=== PATIENT | female | born 1965 | race Caucasian/White ===

== ENCOUNTER 2025-07-21 08:31 | Outpatient (AMB) | payer OTHER, SELFPAY ==
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
[2025-07-21 08:53] VITALS: BP 118/88; PULSE 70; RESP 12; TEMP 36.9; BMI 28.1
--- OUTSIDE RECORDS SUMMARY | 2025-07-21 08:53 | XMS_ITS | Encounter Summary ---
Author Organization [facility] Address [address] [place] [address] Care Team Providers Care Museum Assistant Name Role Phone Julissa Arroyo MD Primary Care Provider [phone] Encounter Details Date Type Department Care Team (Late st Contact Info) Description 07/30/2017 Orders Only [facility] [address] [place] [address] Julissa Arroyo MD [address] [place] [address] Social History Tobacco Use Types Packs/Day Years Used Date Smoking Tobacco: Former Cigarettes Smokeless Tobacco: Former Quit: 07/26/2014 Comments: less than 1/2 ppd Alcohol Use Standard Drinks/Week Comments No 0 (1 standard drink = 0.6 oz pur e alcohol) Comments No Sex and Gender Information Value Date Recorded Sex Assigned at Not on file Legal Sex Female 10:54 AM EDT Gender Identity Not on file Sexual Orientation Not on file 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 Please increase dosage by 1000 units and can repeat level in 6 months or with next lab determination for annual exam. Thank you. * Michelle Ogden - 08/01/2017 9:48 AM EDT See telephone note * Julissa Arroyo MD - 07/31/2017 9:53 PM EDT Please call pt, notify her that her cholesterol is okay, but LDL is still too high for someone on astatin, recommend increase to 40mg pravastatin, and recheck AST and lipids in 2 months, her platelets are still a little low but improved. Recommend we can recheck these again at the 2 month wm also If agrees send new script and schedule 2 month AST LIPIDS, CBC documented in this encounter Plan of Treatment Not on file documented as of this encounter Goals Goal Patient Goal Type Associated Problems Recent Progress Patient-Stated? Author Quit smoking / using tobacco Lifestyle No Lidya Coleman RN documented as of this encounter Procedures * Due to [place] [employer] law, this organization might not be sharing negative HIV tests. Procedure Name Priority Date/Time Associated Diagnosis Comments CBC INCLUDES DIFFERENTIAL AND PLATELET COUNT Routine 07/30/2017 11:35 AM EDT Well adult exam ASPARTATE AMINOTRANSFERASE (AST), SERUM Routine 07/30/2017 11:35 AM EDT Well adult exam VITAMIN D, 25-HYDROXY, TOTAL, IMMUNOASSAY Routine 07/30/2017 11:35 AM EDT Vitamin D deficiency Well adult exam LIPID PANEL WITH REFLEX TO DIRECT LDL Routine 07/30/2017 11:35 AM EDT Pure hypercholesterolem ia Well adult exam documented in this encounter Results * Due to [place] law, this organization might not be sharing negative HIV tests. * (ABNORMAL) VITAMIN D, 25-HYDROXY, TOTAL, IMMUNOASSAY (07/30/2017 11:35 AM EDT) Vitamin D, 25-OH, Total 24(L) 30 - 100 ng/mL [facility] Comment: Vitamin D Status 25-OH Vitamin D: Deficiency: <20 ng/mL Insufficiency: 20 - 29 ng/mL Optimal: > or = 30 ng/mL For 25-OH Vitamin D testing on patients on D2-supplementation and patients for whom quantitation of D2 and D3 fractions is required, the QuestAssureD(TM) 25-OH VIT D, (D2,D3), LC/MS/MS is recommended: order code 27443 (patients >2yrs). For more information on this test, go to: http://education.[employer]/faq/FGH017 (This link is being provided for informational/educational purposes only.) 07/30/2017 11:3 5 AM EDT 07/30/2017 9:43 PM EDT Narrative Resulting Agency Comment [id number] Julissa Arroyo MD LABORATORY Final Resu lt [facility] [address] [place] [address] * (ABNORMAL) CBC INCLUDES DIFFERENTIAL AND PLATELET COUNT (07/30/2017 11:35 AM EDT) WBC 5.8 3.8 - 10.8 Thousand/u L [facility] RBC 4.62 3.80 - 5.10 Million/uL [facility] Hemoglobin 14.9 11.7 - 15.5 g/dL [facility] Hematocrit 44.5 35.0 - 45.0 % [facility] MCV 96.3 80.0 - 100.0 fL [facility] MCH 32.2 27.0 - 33.0 pg [facility] MCHC 33.4 32.0 - 36.0 g/dL [facility] RDW 13.3 11.0 - 15.0 % [facility] PLT 128(L) 140 - 400 Thousand/u L [facility] MPV 10.7 7.5 - 12.5 fL [facility] Neutrophils # 3921 1500 - 7800 cells/uL [facility] Lymphocytes # 1363 850 - 3900 cells/uL [facility] Monocytes # 348 200 - 950 cells/uL [facility] Eosinophils # 157 15 - 500 cells/uL [facility] Basophils # 12 0 - 200 cells/uL [facility] Neutrophils % 67.6 % [facility] Lymphocytes % 23.5 % [facility] Monocytes % 6.0 % [facility] Eosinophils % 2.7 % [facility] Basophils % 0.2 % [facility] 07/30/2017 11:3 5 AM EDT 07/30/2017 9:43 PM EDT Narrative Resulting Agency Comment [id number] us Julissa Arroyo MD LAB SAME DAY RESULT Final Result Performing Organization Address City/[facility]/ZIP Co de Phone Number [facility] [address] [place] [address] * ASPARTATE AMINOTRANSFERASE (AST), SERUM (07/30/2017 11:35 AM EDT) AST (SGOT) 17 10 - 35 U/L [facility] 07/30/2017 11:3 5 AM EDT 07/30/2017 9:43 PM EDT Narrative Resulting Agency Comment [id number] Julissa Arroyo MD LAB SAME DAY RESULT Final Result Performing Organization Address [facility] de Phone Number [facility] [address] [place] [address] * (ABNORMAL) LIPID PANEL WITH REFLEX TO DIRECT LDL (07/30/2017 11:35 AM EDT) Cholesterol 196 <200 mg/dL [facility] HDL Cholesterol 46(L) >50 mg/dL [facility] Triglyceride 211(H) <150 mg/dL [facility] LDL Cholesterol 117(H) mg/dL (calc) [facility] Comment: Reference range: <100 Desirable range <100 mg/dL for patients with CHD or diabetes and <70 mg/dL for diabetic patients with known heart disease. The Leobardo calculation is a validated novel method that provides better accuracy than the Friedewald equation in the estimation of LDL-C, particularly when TG levels are 150-400 mg/dL and LDL-C levels are lower than 70 mg/dL. Reference: Husam GONZALEZ et al. Comparison of a Novel Method vs the Friedewald Equation for Estimating Low-Density Lipoprotein Cholesterol Levels From the Standard Lipid Profile. NICOLAS. 2013;310(19): 5869-6881. For additional information, please refer to http://education.[employer]/faq/AIG136 (This link is being provided for informational/ educational purposes only.) CHOL/HDL Ratio 4.3 <5.0 (calc) [facility] Cholesterol Non-HDL 150(H) <130 mg/dL (calc) [facility] Comment: For patients with diabetes plus 1 major ASCVD risk factor, treating to a non-HDL-C goal of <100 mg/dL (LDL-C of <70 mg/dL) is considered a therapeutic option. 07/30/2017 11:3 5 AM EDT 07/30/2017 9:43 PM EDT Narrative Resulting Agency Comment [id number] Julissa Arroyo MD LABORATORY Final Resu lt [facility] [address] [place] [address] documented in this encounter Visit Diagnoses Diagnosis Pure hypercholesterolemia Well adult exam Routine general medical examination at a health care facility Vitamin D deficiency documented in this encounter Care Teams Museum Assistant Relationship Specialty Start Date End Date Julissa Arroyo MD [address] [place] [id number] PCP - General Family Medicine 06/15/16 documented as of this encounter
--- OUTSIDE RECORDS SUMMARY | 2025-07-21 08:53 | XMS_ITS | Encounter Summary ---
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 Her platelets are a little low, these are cells in the CBC that are involved with clotting,would just recheck in a month with the liver tests. Also the vitamin D level is low, please recommend supplement per protocol. * Cristy Oliva - 02/01/2017 7:45 AM EST Called [facility], added lab * Julissa Arroyo MD - 01/31/2017 8:53 PM EST Please add hepatic function testing to this lab documented in this encounter Plan of Treatment Not on file documented as of this encounter Goals Goal Patient Goal Type Associated Problems Recent Progress Patient-Stated? Author Quit smoking / using tobacco Lifestyle No Lidya Coleman RN documented as of this encounter Procedures * Due to [place] state law, this organization might not be sharing negative HIV tests. Procedure Name Priority Date/Time Associated Diagnosis Comments HEPATIC FUNCTION PANEL Routine 7 3:43 PM EST URINALYSIS DIP W/ REFLEX TO MICROSCOPIC+CULTURE Routine 01/29/2017 3:43 PM EST Healthcare maintenance CBC INCLUDES DIFFERENTIAL AND PLATELET COUNT Routine 01/29/2017 3:43 PM EST Healthcare maintenance ALANINE AMINOTRANSFERASE (ALT), SERUM Routine 01/29/2017 3:43 PM EST Healthcare maintenance Pure hypercholesterolemia ASPARTATE AMINOTRANSFERASE (AST), SERUM Routine 01/29/2017 3:43 PM EST Healthcare maintenance Pure hypercholesterolemia THYROID STIMULATING HORMONE (TSH) WITH FREE T4 REFLEX, SERUM Routine 01/29/2017 3:43 PM EST Healthcare maintenance PROLACTIN Routine 01/29/2017 3:43 PM EST Mastalgia VITAMIN D, 25-HYDROXY, TOTAL, IMMUNOASSAY Routine 01/29/2017 3:43 PM EST Healthcare maintenance BASIC METABOLIC PANEL WITH (GFR) Routine 01/29/2017 3:43 PM EST Healthcare maintenance documented in this encounter Results * Due to [place] state law, this organization might not be sharing negative HIV tests. * (ABNORMAL) HEPATIC FUNCTION PANEL (01/29/2017 3:43 PM EST) Protein Total (Serum) 6.1 6.1 - 8.1 g/dL [facility] Albumin 4.5 3.6 - 5.1 g/dL [facility] Globulin 1.6(L) 1.9 - 3.7 g/dL (calc) [facility] Albumin/Globulin 2.8(H) 1.0 - 2.5 (calc) [facility] Bilirubin Total 0.6 0.2 - 1.2 mg/dL [facility] Bilirubin Direct 0.1 < OR = 0.2 mg/dL [facility] Bilirubin Indirect 0.5 0.2 - 1.2 mg/dL (calc) [facility] Alkaline phosphatase 77 33 - 130 U/L [facility] AST (SGOT) 33 10 - 35 U/L [facility] ALT (SGPT) 48(H) 6 - 29 U/L [facility] COMMENT SEE NOTE [facility] Comment: A hepatic function panel was requested on a serum sample that has been in storage beyond the published stability of total and direct bilirubin. Clinical interpretations should consider this stability data. 01/29/2017 3:4 3 PM EST 01/29/2017 10:44 PM EST us Julissa Arroyo MD LABORATORY Final Resu lt [facility] [address] [place] [address] * PROLACTIN (01/29/2017 3:43 PM EST) Prolactin 18.2 ng/mL [facility] Comment: Reference Range Females Non- 3.0-30.0 10.0-209.0 Postmenopausal 2.0-20.0 01/29/2017 3:43 PM EST 01/29/2017 10:44 PM EST Narrative Resulting Agency Comment [id number] Julissa Arroyo MD LAB SAME DAY RESULT Final Result Performing Organization Address [facility] Co de Phone Number [facility] [address] [place] [address] * (ABNORMAL) ALANINE AMINOTRANSFERASE (ALT), SERUM (01/29/2017 3:43 PM EST) ALT (SGPT) 48(H) 6 - 29 U/L [facility] 01/29/2017 3:43 PM EST 01/29/2017 10:44 PM EST Narrative Resulting Agency Comment [id number] Julissa Arroyo MD LAB SAME DAY RESULT Final Result Performing Organization Address [facility] de Phone Number [facility] [address] [place] [address] * ASPARTATE AMINOTRANSFERASE (AST), SERUM (01/29/2017 3:43 PM EST) AST (SGOT) 33 10 - 35 U/L [facility] 01/29/2017 3:43 PM EST 01/29/2017 10:44 PM EST Narrative Resulting Agency Comment [id number] Julissa Arroyo MD LAB SAME DAY RESULT Final Result Performing Organization Address [facility] de Phone Number [facility] [address] [place] [address] * (ABNORMAL) VITAMIN D, 25-HYDROXY, TOTAL, IMMUNOASSAY (01/29/2017 3:43 PM EST) Vitamin D, 25-OH, Total 19(L) 30 - 100 ng/mL [facility] Comment: Vitamin D Status 25-OH Vitamin D: Deficiency: <20 ng/mL Insufficiency: 20 - 29 ng/mL Optimal: > or = 30 ng/mL For 25-OH Vitamin D testing on patients on D2-supplementation and patients for whom quantitation of D2 and D3 fractions is required, the [facility](TM) 25-OH VIT D, (D2,D3), LC/MS/MS is recommended: order code 07544 (patients >2yrs). For more information on this test, go to: http://education.[employer]/faq/OKE779 (This link is being provided for informational/educational purposes only.) 01/29/2017 3:43 PM EST 01/29/2017 10:44 PM EST Narrative Resulting Agency Comment [id number] Julissa Arroyo MD LABORATORY Final Resu lt Performing Organization Address [facility] Co de Phone Number [facility] [address] [place] [address] * URINALYSIS DIP W/ REFLEX TO MICROSCOPIC+CULTURE (01/29/2017 3:43 PM EST) Color (Urine) YELLOW YELLOW [facility] Appearance (Urine) CLEAR CLEAR [facility] Specific gravity (Urine) 1.016 1.001 - 1.035 [facility] pH (Urine) 5.5 5.0 - 8.0 [facility] Glucose (Urine) NEGATIVE NEGATIVE [facility] Bilirubin (Urine) NEGATIVE NEGATIVE [facility] Ketones (Urine) NEGATIVE NEGATIVE [facility] Hemoglobin (Urine) NEGATIVE NEGATIVE [facility] Protein (Urine) NEGATIVE NEGATIVE [facility] Nitrite (Urine) NEGATIVE NEGATIVE [facility] Leukocyte esterase (Urine) NEGATIVE NEGATIVE [facility] 01/29/2017 3:43 PM EST 01/29/2017 10:44 PM EST Narrative Resulting Agency Comment [id number] Julissa Arroyo MD LABORATORY Final Resu lt Performing Organization Address [facility] Co de Phone Number [facility] [address] [place] [address] * THYROID STIMULATING HORMONE (TSH) WITH FREE T4 REFLEX, SERUM (01/29/2017 3:43 PM EST) TSH 1.99 mIU/L [facility] Comment: Reference Range > or = 20 Years 0.40-4.50 Ranges First trimester 0.26-2.66 Second trimester 0.55-2.73 Third trimester 0.43-2.91 01/29/2017 3:43 PM EST 01/29/2017 10:44 PM EST Narrative Resulting Agency Comment [id number] Julissa Arroyo MD LABORATORY Final Resu lt [facility] [address] [place] [address] * (ABNORMAL) CBC INCLUDES DIFFERENTIAL AND PLATELET COUNT (01/29/2017 3:43 PM EST) WBC 8.6 3.8 - 10.8 Thousand/u L [facility] RBC 4.54 3.80 - 5.10 Million/uL [facility] Hemoglobin 14.5 11.7 - 15.5 g/dL [facility] Hematocrit 43.0 35.0 - 45.0 % [facility] MCV 94.8 80.0 - 100.0 fL [facility] MCH 31.9 27.0 - 33.0 pg [facility] MCHC 33.6 32.0 - 36.0 g/dL [facility] RDW 13.3 11.0 - 15.0 % [facility] PLT 130(L) 140 - 400 Thousand/u L [facility] MPV 10.8 7.5 - 12.5 fL [facility] Neutrophils # 6398 1500 - 7800 cells/uL [facility] Lymphocytes # 1299 850 - 3900 cells/uL [facility] Monocytes # 679 200 - 950 cells/uL [facility] Eosinophils # 155 15 - 500 cells/uL [facility] Basophils # 69 0 - 200 cells/uL [facility] Neutrophils % 74.4 % [facility] Lymphocytes % 15.1 % [facility] Monocytes % 7.9 % [facility] Eosinophils % 1.8 % [facility] Basophils % 0.8 % [facility] 01/29/2017 3:43 PM EST 01/29/2017 10:44 PM EST Narrative Resulting Agency Comment [id number] Julissa Arroyo MD LAB SAME DAY RESULT Final Result [facility] [address] [place] [address] * BASIC METABOLIC PANEL WITH (GFR) (01/29/2017 3:43 PM EST) Glucose 99 65 - 99 mg/dL [facility] Comment:Fasting reference in terval Urea Nitrogen Blood (BUN) 15 7 - 25 mg/dL [facility] Creatinine 0.70 0.50 - 1.05 mg/dL [facility] Comment: For patients >49 years of age, the reference limit for Creatinine is approximately 13% higher for people identified as -Citizen Of [place]. GFR 99 > OR = 60 mL/min/1 .73m2 [facility] GFR () 115 > OR = 60 mL/min/1 .73m2 [facility] BUN/Creatinine Ratio NOT APPLICABLE 6 - 22 (calc) [facility] Sodium 140 135 - 146 mmol/L [facility] Potassium 3.8 3.5 - 5.3 mmol/L [facility] Chloride 103 98 - 110 mmol/L [facility] Carbon dioxide 27 20 - 31 mmol/L [facility] Calcium 9.2 8.6 - 10.4 mg/dL [facility] 01/29/2017 3:43 PM EST 01/29/2017 10:44 PM EST Narrative [facility] - 01/30/2017 4:12 AM EST Please note that this estimated GFR does not include an adjustment for the patient's height or weight, and can therefore, be viewed as reliable only for patients with heights between 60 and 72 . More precise quantification using a 24-hour urine sample or height-based algorithm is recommended for patients outside of this range of height and for those individuals with more precise needs for GFR calculation. Resulting Agency Comment [id number] us Julissa Arroyo MD LABORATORY Final Resu lt [facility] [address] [place] [address] documented in this encounter Visit Diagnoses Diagnosis Healthcare maintenance Routine general medical examination at a health care facility Pure hypercholesterolemia Mastalgia Mastodynia documented in this encounter Care Teams Paint Pourer Relationship Specialty Start Date End Date Julissa Arroyo MD [address] [place] [id number] PCP - General Family Medicine 06/15/16 documented as of this encounter
--- OUTSIDE RECORDS SUMMARY | 2025-07-21 08:53 | XMS_ITS | Encounter Summary ---
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 Repeat CBC 3 mos. Hep B Ab positive so immune. Hep C negative.Mild TG elevation. Low carb/sugar diet and repeat lipids 6 mos, thanks documented in this encounter Plan of Treatment Not on file documented as of this encounter Goals Goal Patient Goal Type Associated Problems Recent Progress Patient-Stated? Author Quit smoking / using tobacco Lifestyle Lidya Dumont RN documented as of this encounter Procedures * Due to [place] [employer] law, this organization might not be sharing negative HIV tests. Procedure Name Priority Date/Time Associated Diagnosis Comments HEPATITIS B SURFACE ANTIGEN Routine 03/15/2017 12:24 PM EDT Abnormal liver function test HEPATITIS C AB WITH REFLEX TO RNA PCR, SERUM Routine 03/15/2017 12:24 PM EDT Abnormal liver function test HEPATITIS B SURFACE ANTIBODY, QUANTITATIVE (FOR IMMUNITY) Routine 03/15/2017 12:24 PM EDT Abnormal liver function test CBC INCLUDES DIFFERENTIAL AND PLATELET COUNT Routine 03/15/2017 12:24 PM EDT Abnormal liver function test Abnormal CBC ALANINE AMINOTRANSFERASE (ALT), SERUM Routine 03/15/2017 12:24 PM EDT Abnormal liver function test ASPARTATE AMINOTRANSFERASE (AST), SERUM Routine 03/15/2017 12:24 PM EDT Abnormal liver function test IRON PROFILE (IRON/TIBC), SERUM Routine 03/15/2017 12:24 PM EDT Abnormal liver function test LIPID PANEL WITH REFLEX TO DIRECT LDL Routine 03/15/2017 12:24 PM EDT Healthcare maintenance Pure hypercholesterolemia documented in this encounter Results * Due to [place] state law, this organization might not be sharing negative HIV tests. * ASPARTATE AMINOTRANSFERASE (AST), SERUM (03/15/2017 12:24 PM EDT) AST (SGOT) 21 10 - 35 U/L [facility] 03/15/2017 12:2 4 PM EDT 03/15/2017 9:56 PM EDT Narrative Resulting Agency Comment [id number] Julissa Arroyo MD LAB SAME DAY RESULT Final Result [facility] [address] [place] [address] * ALANINE AMINOTRANSFERASE (ALT), SERUM (03/15/2017 12:24 PM EDT) ALT (SGPT) 28 6 - 29 U/L [facility] 03/15/2017 12:2 4 PM EDT 03/15/2017 9:56 PM EDT Narrative Resulting Agency Comment [id number] us Julissa Arroyo MD LAB SAME DAY RESULT Final Result Performing Organization Address [facility] Co de Phone Number [facility] [address] [place] [address] * (ABNORMAL) HEPATITIS B SURFACE ANTIBODY, QUANTITATIVE (03/15/2017 12:24 PM EDT) Hepatitis B virus surface Ab 9(L) > OR = 10 mIU/mL [facility] Comment: Patient does not have immunity to hepatitis B virus. For additional information, please refer to http://education.[employer]/faq/QLB082 (This link is being provided for informational/ educational purposes only). 03/15/2017 12:2 4 PM EDT 03/15/2017 9:56 PM EDT Narrative Resulting Agency Comment [id number] us Julissa Arroyo MD LABORATORY Final Resu lt Performing Organization Address [facility] de Phone Number [facility] [address] [place] [address] * IRON PROFILE (IRON/TIBC), SERUM (03/15/2017 12:24 PM EDT) Iron 142 45 - 160 mcg/dL [facility] Iron binding capacity 316 250 - 450 mcg/dL (calc) [facility] Iron saturation 45 11 - 50 % (calc) [facility] 03/15/2017 12:2 4 PM EDT 03/15/2017 9:56 PM EDT Narrative Resulting Agency Comment [id number] us Julissa Arroyo MD LABORATORY Final Resu lt Performing Organization Address [facility] Co de Phone Number [facility] [address] [place] [address] * HEPATITIS B SURFACE ANTIGEN (03/15/2017 12:24 PM EDT) Pathologist [facility] Hepatitis B virus surface Ag NON-REACTI VE NON-REACT ISHAN [facility] 03/15/2017 12:2 4 PM EDT 03/15/2017 9:56 PM EDT Narrative Resulting Agency Comment [id number] Julissa Arroyo MD LABORATORY Final Resu lt Performing Organization Address [facility] Co de Phone Number [facility] [address] [place] [address] * HEPATITIS C AB WITH REFLEX TO RNA PCR, SERUM (03/15/2017 12:24 PM EDT) Pathologist [facility] Hepatitis C virus Ab NON-REACTI VE NON-REACT ISHAN [facility] Hepatitis C virus Ab Signal/Cutoff 0.01 <1.00 [facility] 03/15/2017 12:2 4 PM EDT 03/15/2017 9:56 PM EDT Narrative Resulting Agency Comment [id number] Julissa Arroyo MD LABORATORY Final Resu lt Performing Organization Address [facility] Co de Phone Number [facility] [address] [place] [address] * (ABNORMAL) CBC INCLUDES DIFFERENTIAL AND PLATELET COUNT (03/15/2017 12:24 PM EDT) Pathologist [facility] WBC 5.4 3.8 - 10.8 Thousand/u L [facility] RBC 4.81 3.80 - 5.10 Million/uL [facility] Hemoglobin 15.2 11.7 - 15.5 g/dL [facility] Hematocrit 46.2(H) 35.0 - 45.0 % [facility] MCV 96.1 80.0 - 100.0 fL [facility] MCH 31.6 27.0 - 33.0 pg [facility] MCHC 32.9 32.0 - 36.0 g/dL [facility] RDW 13.0 11.0 - 15.0 % [facility] PLT 119(L) 140 - 400 Thousand/u L [facility] MPV 11.6 7.5 - 12.5 fL [facility] Neutrophils # 3424 1500 - 7800 cells/uL [facility] Lymphocytes # 1382 850 - 3900 cells/uL [facility] Monocytes # 394 200 - 950 cells/uL [facility] Eosinophils # 173 15 - 500 cells/uL [facility] Basophils # 27 0 - 200 cells/uL [facility] Neutrophils % 63.4 % [facility] Lymphocytes % 25.6 % [facility] Monocytes % 7.3 % [facility] Eosinophils % 3.2 % [facility] Basophils % 0.5 % [facility] 03/15/2017 12:2 4 PM EDT 03/15/2017 9:56 PM EDT Narrative Resulting Agency Comment [id number] Julissa Arroyo MD LAB SAME DAY RESULT Final Result Performing Organization Address [facility] de Phone Number [facility] [address] [place] [address] * (ABNORMAL) LIPID PANEL WITH REFLEX TO DIRECT LDL (03/15/2017 12:24 PM EDT) Cholesterol 213(H) 125 - 200 mg/dL [facility] HDL Cholesterol 41(L) > OR = 46 mg/dL [facility] Triglyceride 255(H) <150 mg/dL [facility] LDL Cholesterol 121 <130 mg/dL (calc) [facility] Comment: Desirable range <100 mg/dL for patients with CHD or diabetes and <70 mg/dL for diabetic patients with known heart disease. CHOL/HDL Ratio 5.2(H) < OR = 5.0 (calc) [facility] Cholesterol Non-HDL 172(H) mg/dL (calc) [facility] Comment: Target for non-HDL cholesterol is 30 mg/dL higher than LDL cholesterol target. 03/15/2017 12:2 4 PM EDT 03/15/2017 9:56 PM EDT Narrative Resulting Agency Comment [id number] Julissa Arroyo MD LABORATORY Final Resu lt Performing Organization Address [facility] Co de Phone Number [facility] [address] [place] [address] documented in this encounter Visit Diagnoses Diagnosis Healthcare maintenance Routine general medical examination at a health care facility Pure hypercholesterolemia Abnormal liver function test Other abnormal blood chemistry Abnormal CBC Other abnormal blood chemistry documented in this encounter Care Teams Radiologist Physician Relationship Specialty Start Date End Date Julissa Arroyo MD [address] [place] [address] PCP - General Family Medicine 06/15/16 documented as of this encounter
--- OUTSIDE RECORDS SUMMARY | 2025-07-21 08:53 | XMS_ITS | Encounter Summary ---
Author Organization [facility] Address [address] [place] [address] Care Team Providers Care Bulldozer/Loader/Compactor/Scraper Name Role Phone Julissa Arroyo MD Primary Care Provider +1- [phone] Reason for Referral * OUTPT PROCEDURES AND DIAGNOSTICS (Routine) - ZZ Not Required Specialty Diagnoses / Procedures Referred By Contac t Referred To Contact Mammography Diagnoses SCREENING Procedures REQUEST FOR MAMMOGRAPHY BILATERAL(DX: SCREENING FOR BREAST CANCER Z12.31)(1 YR FROM LAST) NON-FC Julissa Arroyo MD [address] [place] [address] Phone: tel: fax: [facility] [address] [place] [address] Phone: tel: Referral ID Status Reason Start Date Expiration Date Visits Requested Visits Authorized [id number] ZZ Not Required Continuity of Care 03/24/2017 1 1 Encounter Details Date Type Department Care Team (Late st Contact Info) Description 03/24/2017 Orders Only [place] [facility] [address] [place] [address] Julissa Arroyo MD [address] [place] [address] Social History Tobacco Use Types Packs/Day Years [...] Industry Job Start Date Job End Date [facility] Not on file Not on file Not o n file documented as of this encounter Plan of Treatment Scheduled Orders Name Type Priority Associated Diagnoses Orde r Schedule REQUEST FOR MAMMOGRAPHY BILATERAL(DX: SCREENING FOR BREAST CANCER Z12.31)(1 YR FROM LAST) NON-FC Imaging Routine Ordered: 0 03/24/2017 documented as of this encounter Goals Goal Patient Goal Type Associated Problems Recent Progress Patient-Stated? Author Quit smoking / using tobacco Lifestyle No Lidya Coleman RN documented as of this encounter Visit Diagnoses Diagnosis Routine adult health maintenance Routine general medical examination at a health care facility documented in this encounter Care Teams Bulldozer/Loader/Compactor/Scraper Relationship Specialty Start Date End Date Julissa Arroyo MD [address] [place] [address] PCP - General Family Medicine 06/15/16 documented as of this encounter
--- OUTSIDE RECORDS SUMMARY | 2025-07-21 08:53 | XMS_ITS | Clinical Summary ---
Author Organization [facility] Address [address] [place] [address] Care Team Providers Care Site Promotion Agent Name Role Phone Julissa Arroyo MD Primary Care Provider +1- [phone] Allergies No known active allergies Medications Lactobacillus-In ulin ([facility]) Cap 1 QD Active Cholecalciferol 1000 UNITS TabIndications:A bnormal liver function test,Abnormal CBC 1 TABLET DAILY 30 Tab 11 02/04/2017 Active Cholecalciferol 12656 UNITS CapIndications:A bnormal liver function test,Abnormal CBC 1 cap weekly x 8 weeks then start 1000iu daily therafter. take w/food 8 Cap 02/04/2017 Active Azelastine HCl 0.1 % Solution 2 sprays bilat nose BID 1 Bottle 12 03/29/2017 Active Active Problems Problem Noted Date Diagnosed Date Decreased platelet count 07/16/2019 Overview (07/16/2019): Results for MOHINI TORRES ( ) as of 07/16/2019 14:27 Ref. Range 01/29/2017 15:43 03/15/2017 12:24 07/30/2017 11:35 PLATELETS Latest Ref Range: 140 - 400 Thousand/uL 130 (L) 119 (L) 128 (L) Mixed anxiety and depressive disorder 07/30/2017 Overview (07/30/2017): 07/30/2017 she does also have 3 cups of coffee a day of asked her to decrease her caffeine see if this helps with the anxiety, otherwise she has been very stable on sertraline 150 mg, she takes 100 mg in the morning and a half a tablet at night, she also takes 1 alprazolam in the morning. She would like to try a different SSRI if decreasing the caffeine does not help could conceivably try Lexapro initially 10 mg increasing to 20 if decreasing caffeine does not help with the anxiety Vitamin D deficiency 02/04/2017 Multiple atypical nevi 01/01/2017 Overview (07/30/2017): 07/30/2017 we will set her up with dermatology for skin review, had seen Paloma Houser in the past we will set her up again Osteopenia 01/01/2017 Overview (01/01/2017): Vitamin D and calcium regular weightbearing exercise obtain bone density may repeat in 3-5 years Right flank pain 01/01/2017 Overview (01/29/2017): 01/01/2017 she does note that she has had this for about 3 weeks is not aware of any injury, it is slightly better so she will continue to monitor if she does not note an improvement then she will call for reevaluation 01/29/2017 she comes in today for reevaluation she has persistent nonchanging pain, suspect it may be musculoskeletal and will consider physical therapy pending results of Workup that will include abdominal ultrasound to rule out gallbladder/renal abnormality or any other abnormality in that area, will also check dorsal spine film if these are negative consider physical therapy Nasal polyps 07/31/2015 Overview (02/03/2017): HAS HAD THEM REMOVED IN PAST. AND HAS ABOUT 3 SINUS INFECTIONS PER YEAR I am ordering a CT scan of the coronal sinuses, consider ENT follow-up as she does have chronic nasal congestion throughout the year it is very bothersome to her Hyperlipidemia 07/31/2015 Overview (07/30/2017): 07/30/2017 she is set up for routine lab work she will have this done within the next week or so, she continues on statin Immunizations Immunization Administration Dates Next Due Influenza,injectable,quad,Prsrv Fr 07/30/2017 Influenza,seasonal,trivalent,preservative (FLUZO NE MDV) 09/18/2016 Tdap(Adacel) 12/15/2010 Family History Medical History Relation Name Comments Alcohol/Drug Brother sober and helps others Cancer - Brain Father Heart Disorder Father CAD Gastrointestinal Disorder Mother IB S/diarrhea Heart Disorder Mother [place] 80 Stroke Mother Cancer - Lung Sister 1 Psych/Mental Health Sister 2 bipolar/ /depression Gastrointestinal Disorder Sister 3 IB S/diarrhea Relation Name Status Comments Brother Father (Age 70) Mother (Age 79) Sister 1 Sister 2 Sister 3 Social History Tobacco Use Types Packs/Day Years Used Date Smoking Tobacco: Former Cigarettes Smokeless Tobacco: Former Quit: 07/26/2014 Comments: less than 1/2 ppd Alcohol Use Standard Drinks/Week Comments No 0 (1 standard drink = 0.6 oz pur e alcohol) Intimate Partner Violence Answer Date R ecorded Fear of Current or Ex-Partner Not on file Emotionally Abused Not on file 07/28/2023 Physically Abused Not on file 07/28/2023 Sexually Abused Not on file 07/28/2023 Feel Safe at Home Not on file 07/28/2023 Comments No Sex and Gender Information Value Date Recorded Sex Assigned at Not on file Legal Sex Female 10:54 AM EDT Gender Identity Not on file Sexual Orientation Not on file 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 file Not o n file Last Filed Vital Signs Vital Sign Reading Time Taken Comments Blood Pressure 117/71 07/30/2017 10:45 AM EDT Pulse 63 07/30/2017 10:45 AM EDT Temperature 36.3 C (97.4 F) 07/30/2017 10:45 AM EDT Respiratory Rate 16 07/31/2015 11:02 AM EDT Oxygen Saturation 97% 07/31/2015 11:02 AM EDT Inhaled Oxygen Concentration - - Weight 72.6 kg (160 lb) 07/30/2017 10:45 AM EDT Height 155.6 cm (5' 1.25 ) 07/30/2017 10:45 AM E DT Body Mass Index 29.99 07/30/2017 10:45 AM EDT Plan of Treatment Health Maintenance Due Date Last Done Comments Pap Smear 1979 Pneumococcal 50+ years (1 of 1 - PCV) 2013 Zoster (Shingrix) (1 of 2) 2013 Mammogram/Breast Imaging 02/20/2018 02/20/2017 DTaP/Tdap/Td (2 - Td or Tdap) 12/15/2020 12/15/2010 COVID-19 Vaccine (1 - 2023-2 5 season) 2024 Influenza (#1) 2025 07/30/2017, 09/18/2016 RSV (1 - 1-dose 75+ series) 2038 Hepatitis C Screening Completed 03/15/2017 HPV Vaccine (No Doses Required) Completed Hep A Aged Out No longer eligi ble based on patient's age to complete this topic Hep B Aged Out No longer eligi ble based on patient's age to complete this topic Hib Aged Out No longer eligi ble based on patient's age to complete this topic Meningococcal ACWY Aged Out No longer eligible based on patient's age to complete this topic Zoster (Zostavax) Discontinued Goals Goal Patient Goal Type Associated Problems Recent Progress Patient-Stated? Author Quit smoking / using tobacco Lifestyle No Lidya Coleman RN Procedures * Due to [place] i[employer] law, this organization might not be sharing negative HIV tests. Procedure Name Priority Date/Time Associated Diagnosis Comments HEPATITIS C AB WITH REFLEX TO RNA PCR, SERUM Routine 03/15/2017 12:24 PM EDT Abnormal liver function test DIGITAL SCREENING MAMMO Routine 02/20/2017 10:29 AM EDT from Last 3 Months or Most Recently Relevant to Health Maintenance Results * Due to [place] iPointer law, this organization might not be sharing negative HIV tests. * HEPATITIS C AB WITH REFLEX TO RNA PCR, SERUM (03/15/2017 12:24 PM EDT) Hepatitis C virus Ab NON-REACTI VE NON-REACT ISHAN [facility] Hepatitis C virus Ab Signal/Cutoff 0.01 <1.00 [facility] 03/15/2017 12:2 4 PM EDT 03/15/2017 9:56 PM EDT Narrative Resulting Agency Comment [id number] Julissa Arroyo MD LABORATORY Final Resu lt [facility] [address] [place] [address] * DIGITAL SCREENING MAMMO (02/20/2017 10:29 AM EDT) [facility] RADIOLOGY REPORT DEPARTMENT OF RADIOLOGY ------ Patient: MOHINI TORRES Unit #: [id number] Ordering MD: JULISSA ARROYO MD : [id number] Procedure: Digital Mammo Screen Age: 51 Location: MAMMO Exam Date: 02/20/17 Status: [facility] Room/Bed: Primary MD: JULISSA ARROYO MD Patient Order: [id number] Additional Copy: JULISSA ARROYO MD #[id number] - DIGSCRMAM BILATERAL DIGITAL TOMOSYNTHESIS SCREENING MAMMOGRAM WITH CAD: 02/20/2017 CLINICAL: Routine. Digital 2D mammogram, synthesized 2D views and 3D Tomosynthesis views were obtained. Current study was also evaluated with a Computer Aided Detection (CAD) system. Comparison is made to exams dated: 08/18/2014 mammogram, 01/15/2012 mammogram, and 12/22/2010 mammogram - [facility] [place]. There are scattered areas of fibroglandular density in both breasts There is a circumscribed mass in the left breast central to the nipple anterior depth and a circumscribed similar mass in the left breast at 11 o'clock anterior depth, likely representing cysts. No other significant masses, calcifications, or other findings are seen in either breast. IMPRESSION: INCOMPLETE:NEED ADDITIONAL IMAGING EVALUATION The mass in the left breast central to the nipple anterior depth and a mass in the left breast at 11 o'clock anterior depth could represent cysts but warrant additional imaging. A targeted left breast ultrasound is recommended. This exam was interpreted at [place]. POI: Gurvinder. Electronically signed by: Kacie Gomez M.D. sv/:02/21/2017 11:12:30 letter sent: B-Needs Addl Imaging Mammogram BI-RADS: 0 INCOMPLETE:NEED ADDITIONAL IMAGING EVALUATION [facility] RAD Anatomical Region Laterality Modality Other 02/20/2017 10:2 9 AM EDT Narrative 02/20/2017 10:29 AM EDT Reason for Study/History: Routine. TEST(S) PROCESSED BY [facility] Julissa Arroyo MD IMAGING-[place] Final R esult from Last 3 Months or Most Recently Relevant to Health Maintenance Insurance BC FEE FOR SERVICE PPO Advance Directives Documents on File Type Date Recorded Patient Engineering Supervisor Expl anation Advance Directives and Living Will 01/01/2017 Care Teams Site Promotion Agent Relationship Specialty Start Date End Date Julissa Arroyo MD [address] [place] [id number] PCP - General Family Medicine 06/15/16
--- OUTSIDE RECORDS SUMMARY | 2025-07-21 08:53 | XMS_ITS | Encounter Summary ---
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 * Telephone Encounter - Julissa Arroyo MD - 05/17/2017 3:45 PM EDT okay * Telephone Encounter - Kami Walker - 05/17/2017 1:10 PM EDT [facility] website states xanax last filled 03/14 for #60. Pt has been getting the alprazolam from a provider in [place], but last month it came from this office. Rx attached if ok. * Telephone Encounter - Lizet Mehta - 05/17/2017 10:26 AM EDT Received telephone call from patient requesting refills for the following medication(s): ALPRAZolam0.5 MG Tab. Provider of this patient is . Pharmacy is [facility] documented in this encounter Plan of Treatment Not on file documented as of this encounter Goals Goal Patient Goal Type Associated Problems Recent Progress Patient-Stated? Author Quit smoking / using tobacco Lifestyle No Lidya Coleman, RN documented as of this encounter Visit Diagnoses Not on filedocumented in this encounter Care Teams Planner Intern Relationship Specialty Start Date End Date Julissa Arroyo MD [address] [place] [id number] PCP - General Family Medicine 06/15/16 documented as of this encounter
== END 2025-07-21 09:25 | disposition home or self-care (01) ==
LOC: HO.HMCFM 08:31
PROVIDERS: PCP Physician Assistant; Visit Provider Physician Assistant
DX: M85.80 Other specified disorders of bone density and structure, unspecified site (principal); L98.9 Disorder of the skin and subcutaneous tissue, unspecified; G47.00 Insomnia, unspecified; F17.200 Nicotine dependence, unspecified, uncomplicated

== ENCOUNTER → 2025-07-21 08:31 | Outpatient (BNVA) | payer OTHER, SELFPAY | PROVIDERS: PCP Physician Assistant; Visit Provider Physician Assistant | DX: Z00.00 Encounter for general adult medical examination without abnormal findings (principal); M85.80 Other specified disorders of bone density and structure, unspecified site; L98.9 Disorder of the skin and subcutaneous tissue, unspecified; G47.00 Insomnia, unspecified; F17.210 Nicotine dependence, cigarettes, uncomplicated | CPT/HCPCS: 96127 ==

== ENCOUNTER 2025-07-27 09:09 | Outpatient (REF) | payer OTHER, SELFPAY ==
--- OUTSIDE RECORDS SUMMARY | 2025-07-27 10:02 | XMS_ITS | Encounter Summary ---
Author Organization [facility] Address [address] [place] [address] Care Team Providers Care Trimming Department Blocker Name Role Phone Julissa Arroyo MD Primary Care Provider +1- [phone] Reason for Referral * OUTPT PROCEDURES AND DIAGNOSTICS (Routine) - ZZ Not Required Specialty Diagnoses / Procedures Referred By Contac t Referred To Contact Mammography Diagnoses SCREENING Procedures REQUEST FOR MAMMOGRAPHY BILATERAL(DX: SCREENING FOR BREAST CANCER Z12.31)(1 YR FROM LAST) NON-FC Julissa Arroyo MD [address] [place] [address] Phone: tel: fax: 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
--- OUTSIDE RECORDS SUMMARY | 2025-07-27 10:02 | XMS_ITS | Encounter Summary ---
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 * ASPARTATE AMINOTRANSFERASE (AST), SERUM (03/15/2017 12:24 PM EDT) AST (SGOT) 21 10 - 35 U/L [facility] 03/15/2017 12:2 4 PM EDT 03/15/2017 9:56 PM EDT Narrative Resulting Agency Comment [id number] Julissa Arroyo MD LAB SAME DAY RESULT Final Result [facility] [address] [place] [address] * ALANINE AMINOTRANSFERASE (ALT), SERUM (03/15/2017 12:24 PM EDT) ALT (SGPT) 28 6 - 29 U/L [facility] 03/15/2017 12:2 4 PM EDT 03/15/2017 9:56 PM EDT Narrative Resulting Agency Comment [id number] Julissa Arroyo MD LAB SAME DAY RESULT Final Result Performing Organization Address [facility] Co de Phone Number [facility] [address] [place] [address] * (ABNORMAL) HEPATITIS B SURFACE ANTIBODY, QUANTITATIVE (03/15/2017 12:24 PM EDT) Hepatitis B virus surface Ab 9(L) > OR = 10 mIU/mL [facility] Comment: Patient does not have immunity to hepatitis B virus. For additional information, please refer to http://education.Mindman[employer]/faq/VRJ873 (This link is being provided for informational/ educational purposes only). 03/15/2017 12:2 4 PM EDT 03/15/2017 9:56 PM EDT Narrative Resulting Agency Comment [id number] us Julissa Arroyo MD LABORATORY Final Resu lt Performing Organization Address [facility] de Phone Number [facility] [address] [place] [address] * IRON PROFILE (IRON/TIBC), SERUM (03/15/2017 12:24 PM EDT) Iron 142 45 - 160 mcg/dL [facility] Iron binding capacity 316 250 - 450 mcg/dL (calc) [facility] Iron saturation 45 11 - 50 % (calc) [facility] 03/15/2017 12:2 4 PM EDT 03/15/2017 9:56 PM EDT Narrative Resulting Agency Comment [id number] us Julissa Arroyo MD LABORATORY Final Resu lt Performing Organization Address [facility] Co de Phone Number [facility] [address] [place] [address] * HEPATITIS B SURFACE ANTIGEN (03/15/2017 12:24 PM EDT) Pathologist [facility] Hepatitis B virus surface Ag NON-REACTI VE NON-REACT ISHAN [facility] 03/15/2017 12:2 4 PM EDT 03/15/2017 9:56 PM EDT Narrative Resulting Agency Comment [id number] Julissa Arroyo MD LABORATORY Final Resu lt Performing Organization Address [facility] Co de Phone Number [facility] [address] [place] [address] * HEPATITIS C AB WITH REFLEX TO RNA PCR, SERUM (03/15/2017 12:24 PM EDT) Pathologist [facility] Hepatitis C virus Ab NON-REACTI VE NON-REACT ISHAN [facility] Hepatitis C virus Ab Signal/Cutoff 0.01 <1.00 [facility] 03/15/2017 12:2 4 PM EDT 03/15/2017 9:56 PM EDT Narrative Resulting Agency Comment [id number] Julissa Arroyo MD LABORATORY Final Resu lt Performing Organization Address [facility] Co de Phone Number [facility] [address] [place] [address] * (ABNORMAL) CBC INCLUDES DIFFERENTIAL AND PLATELET COUNT (03/15/2017 12:24 PM EDT) Pathologist [facility] WBC 5.4 3.8 - 10.8 Thousand/u L [...] 9:56 PM EDT Narrative Resulting Agency Comment [id number] Julissa Arroyo MD LAB SAME DAY RESULT Final Result Performing Organization Address [facility] de Phone Number [facility] [address] [place] [address] * (ABNORMAL) LIPID PANEL WITH REFLEX TO [...] 9:56 PM EDT Narrative Resulting Agency Comment [id number] Julissa Arroyo MD LABORATORY Final Resu lt Performing Organization Address [facility] Co de Phone Number [facility] [address] [place] [address] documented in this encounter Visit Diagnoses Diagnosis Healthcare maintenance Routine general medical examination at a health care facility Pure hypercholesterolemia Abnormal liver function test Other abnormal blood chemistry Abnormal CBC Other abnormal blood chemistry documented in this encounter Care Teams Senior Warehouse Clerk Relationship Specialty Start Date End Date Julissa Arroyo MD [address] [place] [id number] PCP - General Family Medicine 06/15/16 documented as of this encounter
--- OUTSIDE RECORDS SUMMARY | 2025-07-27 10:02 | XMS_ITS | Encounter Summary ---
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 * Telephone Encounter - Julissa Arroyo MD - 05/17/2017 3:45 PM EDT okay * Telephone Encounter - Kami Walker - 05/17/2017 1:10 PM EDT [facility] website states xanax last filled 03/14 for #60. Pt has been getting the alprazolam from a provider in [place], but last month it came from this [...] on filedocumented in this encounter Care Teams Church Musician Relationship Specialty Start Date End Date Julissa Arroyo MD [address] [place] [id number] PCP - General Family Medicine 06/15/16 documented as of this encounter
--- OUTSIDE RECORDS SUMMARY | 2025-07-27 10:02 | XMS_ITS | Encounter Summary ---
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 * (ABNORMAL) VITAMIN D, 25-HYDROXY, TOTAL, IMMUNOASSAY (07/30/2017 11:35 AM EDT) Vitamin D, 25-OH, Total 24(L) 30 - 100 ng/mL [facility] Comment: Vitamin D Status 25-OH Vitamin D: Deficiency: <20 ng/mL Insufficiency: 20 - 29 ng/mL Optimal: > or = 30 ng/mL For 25-OH Vitamin D testing on patients on D2-supplementation and patients for whom quantitation of D2 and D3 fractions is required, the QuestAssureD(TM) 25-OH VIT D, (D2,D3), LC/MS/MS is recommended: order code 72486 (patients >2yrs). For more information on this test, go to: http://education.RubyRide/faq/MNE728 (This link is being provided for informational/educational purposes only.) 07/30/2017 11:3 5 AM EDT 07/30/2017 9:43 PM EDT Narrative Resulting Agency Comment [id number] Julissa Arroyo MD LABORATORY Final Resu lt [facility] [address] [place] [address] * (ABNORMAL) CBC INCLUDES DIFFERENTIAL AND PLATELET [...] 9:43 PM EDT Narrative Resulting Agency Comment [id number] us Julissa Arroyo MD LAB SAME DAY RESULT Final Result Performing Organization Address City/[facility]/ZIP Co de Phone Number [facility] [address] [place] [address] * ASPARTATE AMINOTRANSFERASE (AST), SERUM (07/30/2017 11:35 AM EDT) AST (SGOT) 17 10 - 35 U/L [facility] 07/30/2017 11:3 5 AM EDT 07/30/2017 9:43 PM EDT Narrative Resulting Agency Comment [id number] Julissa Arroyo MD LAB SAME DAY RESULT Final Result Performing Organization Address [facility] de Phone Number [facility] [address] [place] [address] * (ABNORMAL) LIPID PANEL WITH REFLEX TO [...] From the Standard Lipid Profile. NICOLAS. 2013;310(19): 6349-0548. For additional information, please refer to http://education.[employer]faq/EGI068 (This link is being provided for informational/ [...] 9:43 PM EDT Narrative Resulting Agency Comment [id number] Julissa Arroyo MD LABORATORY Final Resu lt [facility] [address] [place] [address] documented in this encounter Visit Diagnoses Diagnosis Pure hypercholesterolemia Well adult exam Routine general medical examination at a health care facility Vitamin D deficiency documented in this encounter Care Teams Clinical Administrative Coordinator Relationship Specialty Start Date End Date Julissa Arroyo MD [address] [place] [address] PCP - General Family Medicine 06/15/16 documented as of this encounter
--- OUTSIDE RECORDS SUMMARY | 2025-07-27 10:02 | XMS_ITS | Clinical Summary ---
Author Organization [facility] Address [address] [place] [address] Care Team Providers Care Judicial Assistant Name Role Phone Julissa Arroyo MD Primary Care Provider +1- [phone] Allergies No known active allergies Medications Lactobacillus-In ulin ([facility]) Cap 1 QD Active Cholecalciferol 1000 UNITS TabIndications:A bnormal liver function test,Abnormal CBC 1 TABLET DAILY 30 Tab 11 02/04/2017 Active Cholecalciferol 75763 UNITS CapIndications:A bnormal liver function test,Abnormal CBC [...] Disorder Mother IB S/diarrhea Heart Disorder Mother [place] 80 Stroke Mother Cancer - Lung Sister [...] 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 Procedure Name Priority Date/Time Associated Diagnosis Comments HEPATITIS C AB WITH REFLEX TO RNA PCR, SERUM Routine 03/15/2017 12:24 PM EDT Abnormal liver function test DIGITAL SCREENING MAMMO Routine 02/20/2017 10:29 AM EDT from Last 3 Months or Most Recently Relevant to Health Maintenance Results * Due to [employer] law, this organization might not be sharing negative HIV tests. * HEPATITIS C AB WITH REFLEX TO RNA PCR, SERUM (03/15/2017 12:24 PM EDT) Hepatitis C virus Ab NON-REACTI VE NON-REACT ISHAN [facility] Hepatitis C virus Ab Signal/Cutoff 0.01 <1.00 [facility] 03/15/2017 12:2 4 PM EDT 03/15/2017 9:56 PM EDT Narrative Resulting Agency Comment [id number] Julissa Arroyo MD LABORATORY Final Resu lt [facility] [address] [place] [address] * DIGITAL SCREENING MAMMO (02/20/2017 10:29 AM EDT) [facility] RADIOLOGY REPORT DEPARTMENT OF RADIOLOGY ------ Patient: MOHINI TORRES Unit #: [id number] Ordering MD: JULISSA ARROYO MD : 1965 Procedure: Digital Mammo Screen Age: 51 Location: MAMMO Exam Date: 02/20/17 Status: [facility] Room/Bed: Primary MD: JULISSA ARROYO MD Patient Order: [id number] Additional Copy: JULISSA ARROYO MD #[id number] - DIGSCRMAM BILATERAL DIGITAL TOMOSYNTHESIS SCREENING MAMMOGRAM WITH CAD: 02/20/2017 CLINICAL: Routine. Digital 2D mammogram, synthesized 2D views and 3D Tomosynthesis views were obtained. Current study was also evaluated with a Computer Aided Detection (CAD) system. Comparison is made to exams dated: 08/18/2014 mammogram, 01/15/2012 mammogram, and 12/22/2010 mammogram - [facility] [place]. There are scattered areas of fibroglandular density [...] is recommended. This exam was interpreted at [place]. POI: Gurvinder. Electronically signed by: Kacie Gomez M.D. sv/:02/21/2017 11:12:30 letter sent: B-Needs Addl Imaging Mammogram BI-RADS: 0 INCOMPLETE:NEED ADDITIONAL IMAGING EVALUATION [facility] RAD Anatomical Region Laterality Modality Other 02/20/2017 10:2 9 AM EDT Narrative 02/20/2017 10:29 AM EDT Reason for Study/History: Routine. 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
--- OUTSIDE RECORDS SUMMARY | 2025-07-27 10:03 | XMS_ITS | Encounter Summary ---
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 file Not o n file documented as of this encounter Progress Notes * Lidya Coleman RN - 02/04/2017 11:00 AM EDT [employer] telephone message dated: 02/04/17 * Julissa Arroyo [...] of this encounter Procedures * Due to [place] state law, this organization might not be [...] in this encounter Results * Due to [place] state law, this organization might not be [...] LABORATORY Final Resu lt [facility] [address] [place] [address] * PROLACTIN (01/29/2017 3:43 PM EST) Prolactin 18.2 ng/mL [facility] Comment: Reference Range Females Non- 3.0-30.0 10.0-209.0 Postmenopausal 2.0-20.0 01/29/2017 3:43 PM EST 01/29/2017 10:44 PM EST Narrative Resulting Agency Comment [id number] Julissa Arroyo MD LAB SAME DAY RESULT Final Result Performing Organization Address [facility] Co de Phone Number [facility] [address] [place] [address] * (ABNORMAL) ALANINE AMINOTRANSFERASE (ALT), SERUM (01/29/2017 3:43 PM EST) ALT (SGPT) 48(H) 6 - 29 U/L [facility] 01/29/2017 3:43 PM EST 01/29/2017 10:44 PM EST Narrative Resulting Agency Comment [id number] Julissa Arroyo MD LAB SAME DAY RESULT Final Result Performing Organization Address [facility] de Phone Number [facility] [address] [place] [address] * ASPARTATE AMINOTRANSFERASE (AST), SERUM (01/29/2017 3:43 PM EST) AST (SGOT) 33 10 - 35 U/L [facility] 01/29/2017 3:43 PM EST 01/29/2017 10:44 PM EST Narrative Resulting Agency Comment [id number] Julissa Arroyo MD LAB SAME DAY RESULT Final Result Performing Organization Address [facility] de Phone Number [facility] [address] [place] [address] * (ABNORMAL) VITAMIN D, 25-HYDROXY, TOTAL, IMMUNOASSAY [...] D, (D2,D3), LC/MS/MS is recommended: order code 67420 (patients >2yrs). For more information on this test, go to: http://education.DuraFizz/faq/VTM714 (This link is being provided for informational/educational purposes only.) 01/29/2017 3:43 PM EST 01/29/2017 10:44 PM EST Narrative Resulting Agency Comment [id number] Julissa Arroyo MD LABORATORY Final Resu lt Performing Organization Address [facility] Co de Phone Number [facility] [address] [place] [address] * URINALYSIS DIP W/ REFLEX TO MICROSCOPIC+CULTURE [...] 10:44 PM EST Narrative Resulting Agency Comment [id number] Julissa Arroyo MD LABORATORY Final Resu lt Performing Organization Address [facility] Co de Phone Number [facility] [address] [place] [address] * THYROID STIMULATING HORMONE (TSH) WITH FREE T4 REFLEX, SERUM (01/29/2017 3:43 PM EST) TSH 1.99 mIU/L [facility] Comment: Reference Range > or = 20 Years 0.40-4.50 Ranges First trimester 0.26-2.66 Second trimester 0.55-2.73 Third trimester 0.43-2.91 01/29/2017 3:43 PM EST 01/29/2017 10:44 PM EST Narrative Resulting Agency Comment [id number] Julissa Arroyo MD LABORATORY Final Resu lt [facility] [address] [place] [address] * (ABNORMAL) CBC INCLUDES DIFFERENTIAL AND PLATELET [...] 10:44 PM EST Narrative Resulting Agency Comment [id number] Julissa Arroyo MD LAB SAME DAY RESULT Final Result [facility] [address] [place] [address] * BASIC METABOLIC PANEL WITH (GFR) (01/29/2017 3:43 PM EST) Glucose 99 65 - 99 mg/dL [facility] Comment:Fasting reference in terval Urea Nitrogen Blood (BUN) 15 7 - 25 mg/dL [facility] Creatinine 0.70 0.50 - 1.05 mg/dL [facility] Comment: For patients >49 years of age, the reference limit for Creatinine is approximately 13% higher for people identified as -[place]ian. GFR 99 > OR = 60 mL/min/1 [...] needs for GFR calculation. Resulting Agency Comment [id number] Julissa Arroyo MD LABORATORY Final Resu lt [facility] [address] [place] [address] documented in this encounter Visit Diagnoses Diagnosis Healthcare maintenance Routine general medical examination at a health care facility Pure hypercholesterolemia Mastalgia Mastodynia documented in this encounter Care Teams Net Washer Relationship Specialty Start Date End Date Julissa Arroyo MD [address] [place] [address] PCP - General Family Medicine 06/15/16 documented as of this encounter
[2025-07-27 11:07] LABS: MANUAL DIFF FLAG NO
[2025-07-27 11:10] LABS: Hematocrit 42.9 % (37.0-47.0); Hemoglobin 14.7 g/dl (12.0-16.0); Imm Gran Abs Auto 0.01 X10*3/uL (0.00-0.03); Imm Gran Pct Auto 0.2 % (0.0-0.4); Lymphocytes Absolute Auto 1.4 X10*3/uL (1.2-4.9); Mean Corpuscular HGB Conc 34.3 g/dl (31.0-35.0); Mean Corpuscular Hemoglobin 32.8 pg (27.0-33.0); Mean Corpuscular Volume 95.8 fL (80.0-98.0); NRBC Abs Auto 0.000 X10*3/uL (0.0-0.012); NRBC Pct Auto 0.0 /100WBC (0.0-0.2); Platelet Count 216 X10*3/uL (160-400); Red Blood Count 4.48 X10*6/uL (4.20-5.50); White Blood Count 4.9 X10*3/uL (4.8-10.8)
[2025-07-27 11:20] LABS: Appearance Urine Clear; Glucose Urine UA Negative (Negative); PH 7.5 (5.0-9.0); Specific Gravity - Urine 1.010 (1.005-1.025)
[2025-07-27 12:30] LABS: Alanine Aminotransferase 28 U/L (0-31); Albumin Level 4.6 g/dL (3.5-5.0); Alkaline Phosphatase 80 U/L (39-117); Anion Gap 12 (12-20); Aspartate Amino Transferase 23 U/L (5-31); Blood Urea Nitrogen 14 mg/dL (9-16); Calcium 9.1 mg/dL (8.4-10.2); Carbon Dioxide 23 mmol/L (22-29); Chloride 110 mmol/L (96-108); Cholesterol 283 mg/dL (<200); Estimated Glomerular Filt Rate > 60; HDL Cholesterol 42 mg/dL (>40); Potassium 4.3 mmol/L (3.3-5.1); Sodium 141 mmol/L (135-145); Total Protein 6.6 g/dL (6.5-8.0); Triglycerides 264 mg/dL (<150)
== END 2025-07-27 09:10 | disposition home or self-care (01) ==
LOC: HO.WFDLDS 09:09
PROVIDERS: Visit Provider Physician Assistant
DX: Z00.00 Encounter for general adult medical examination without abnormal findings (principal); M85.80 Other specified disorders of bone density and structure, unspecified site; L98.9 Disorder of the skin and subcutaneous tissue, unspecified; R30.0 Dysuria; Z13.6 Encounter for screening for cardiovascular disorders
CPT/HCPCS: 36415; 80053; 80061; 81003; 82306; 82570; 84443; 85025

== ENCOUNTER 2025-11-16 13:31 | Outpatient (REF) | payer OTHER, SELFPAY ==
--- NOTE | ~2025-11-16 | MM_ITS ---
EXAMINATION: DXA BONE DENSITY AXIAL HISTORY: M85.80 - Other specified disorders of bone density and structure, unspecified... TECHNIQUE: [employer] Dual energy absorptiometry (DEXA) of the lumbar spine, total left hip, and femoral neck was performed. COMPARISON: There are no prior studies for comparison. FINDINGS: The bone mineral density of the lumbar spine is 0.847 g/cm2, corresponding to a T-score of -2.8, and a Z-score of -1.3. This is indicative of osteoporosis. The bone mineral density of the left total hip is 0.787 g/cm2, corresponding to a T-score of -1.7, and a Z-score of -0.7. This is indicative of osteopenia. The bone mineral density of the left femoral neck is 0.761 g/cm2, corresponding to a T-score of -2.0, and a Z-score of -0.6. This is indicative of osteopenia. FRACTURE RISK: The FRAX index suggests a risk of major osteoporotic fracture of 10.3%, and of hip fracture 1.4%. MM/XR DEXA axial skeleton IMPRESSION: Based on bone mineral density, and according to World Health Organization (WHO) criteria, the diagnosis is consistent with osteoporosis. Statistically, 68% of repeat scans fall within 1 SD (+/- 0.010 g/cm2 for AP spine L1-L4) and 1 SD (+/- 0.012 g/cm2 for femur total) FRAX is a trademark of the [employer] Metabolic Bone Disease, a World Health Organization (WHO) Collaborating Center. Electronically signed by: Shawn Pennington MD 11/16/2025 03:07 PM [facility]
--- OUTSIDE RECORDS SUMMARY | 2025-11-16 14:40 | XMS_ITS | Encounter Summary ---
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 telephone message dated: 02/04/17 * Julissa Arroyo [...] of this encounter Procedures * Due to [place] state law, this organization might not be [...] in this encounter Results * Due to [place] state law, this organization might not be [...] interpretations should consider this stability data. 01/29/2017 3:43 PM EST 01/29/2017 10:44 PM EST us Julissa Arroyo MD LABORATORY Final Resu lt [facility] [address] [place] [address] * PROLACTIN (01/29/2017 3:43 PM EST) Prolactin 18.2 ng/mL [facility] Comment: Reference Range Females Non- 3.0-30.0 10.0-209.0 Postmenopausal 2.0-20.0 01/29/2017 3:43 PM EST 01/29/2017 10:44 PM EST Narrative Resulting Agency Comment [id number] Julissa Arroyo MD LAB SAME DAY RESULT Final Result Performing Organization Address [facility] Co de Phone Number [facility] [address] [place] [address] * (ABNORMAL) ALANINE AMINOTRANSFERASE (ALT), SERUM (01/29/2017 3:43 PM EST) ALT (SGPT) 48(H) 6 - 29 U/L [facility] 01/29/2017 3:43 PM EST 01/29/2017 10:44 PM EST Narrative Resulting Agency Comment [id number] Julissa Arroyo MD LAB SAME DAY RESULT Final Result Performing Organization Address [facility] de Phone Number [facility] [address] [place] [address] * ASPARTATE AMINOTRANSFERASE (AST), SERUM (01/29/2017 3:43 PM EST) AST (SGOT) 33 10 - 35 U/L [facility] 01/29/2017 3:43 PM EST 01/29/2017 10:44 PM EST Narrative Resulting Agency Comment [id number] Julissa Arroyo MD LAB SAME DAY RESULT Final Result Performing Organization Address [facility] de Phone Number [facility] [address] [place] [address] * (ABNORMAL) VITAMIN D, 25-HYDROXY, TOTAL, IMMUNOASSAY [...] D2 and D3 fractions is required, the [employer](TM) 25-OH VIT D, (D2,D3), LC/MS/MS is recommended: order code [id number] (patients >2yrs). For more information on this test, go to: http://education.Joyride/faq/TUE231 (This link is being provided for informational/educational purposes only.) 01/29/2017 3:43 PM EST 01/29/2017 10:44 PM EST Narrative Resulting Agency Comment [id number] Julissa Arroyo MD LABORATORY Final Resu lt Performing Organization Address [facility] Co de Phone Number [facility] [address] [place] [address] * URINALYSIS DIP W/ REFLEX TO MICROSCOPIC+CULTURE [...] 10:44 PM EST Narrative Resulting Agency Comment [id number] Julissa Arroyo MD LABORATORY Final Resu lt Performing Organization Address [facility] Co de Phone Number [facility] [address] [place] [address] * THYROID STIMULATING HORMONE (TSH) WITH FREE T4 REFLEX, SERUM (01/29/2017 3:43 PM EST) TSH 1.99 mIU/L [facility] Comment: Reference Range > or = 20 Years 0.40-4.50 Ranges First trimester 0.26-2.66 Second trimester 0.55-2.73 Third trimester 0.43-2.91 01/29/2017 3:43 PM EST 01/29/2017 10:44 PM EST Narrative Resulting Agency Comment [id number] Julissa Arroyo MD LABORATORY Final Resu lt [facility] [address] [place] [address] * (ABNORMAL) CBC INCLUDES DIFFERENTIAL AND PLATELET [...] 10:44 PM EST Narrative Resulting Agency Comment [id number] Julissa Arroyo MD LAB SAME DAY RESULT Final Result Performing Organization Address City/[facility]/ZIP Co de Phone Number [facility] [address] [place] [address] * BASIC METABOLIC PANEL WITH (GFR) (01/29/2017 3:43 PM EST) Glucose 99 65 - 99 mg/dL [facility] Comment:Fasting reference in terval Urea Nitrogen Blood (BUN) 15 7 - 25 mg/dL [facility] Creatinine 0.70 0.50 - 1.05 mg/dL [facility] Comment: For patients >49 years of age, the reference limit for Creatinine is approximately 13% higher for people identified as -[place]ian. GFR 99 > OR = 60 mL/min/1 [...] needs for GFR calculation. Resulting Agency Comment [id number] us Julissa Arroyo MD LABORATORY Final Resu lt [facility] [address] [place] [address] documented in this encounter Visit Diagnoses Diagnosis Healthcare maintenance Routine general medical examination at a health care facility Pure hypercholesterolemia Mastalgia Mastodynia documented in this encounter Care Teams Avian Keeper Relationship Specialty Start Date End Date Julissa Arroyo MD [address] [place] [address] PCP - General Family Medicine 06/15/16 documented as of this encounter
--- OUTSIDE RECORDS SUMMARY | 2025-11-16 14:40 | XMS_ITS | Clinical Summary ---
Author Organization [facility] Address [address] [place] [address] Care Team Providers Care Pasteurizer Helper Name Role Phone Julissa Arroyo MD Primary Care Provider +1- [phone] Allergies No known active allergies Medications Lactobacillus-In ulin ([facility]) Cap 1 QD Active Cholecalciferol 1000 UNITS TabIndications:A bnormal liver function test,Abnormal CBC 1 TABLET DAILY 30 Tab 11 02/04/2017 Active Cholecalciferol 91289 UNITS CapIndications:A bnormal liver function test,Abnormal CBC [...] Disorder Mother IB S/diarrhea Heart Disorder Mother [place] 80 Stroke Mother Cancer - Lung Sister [...] 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 Procedure Name Priority Date/Time Associated Diagnosis Comments HEPATITIS C AB WITH REFLEX TO RNA PCR, SERUM Routine 03/15/2017 12:24 PM EDT Abnormal liver function test DIGITAL SCREENING MAMMO Routine 02/20/2017 10:29 AM EDT from Last 3 Months or Most Recently Relevant to Health Maintenance Results * Due to [place] [employer] law, this organization might not be sharing negative HIV tests. * HEPATITIS C AB WITH REFLEX TO RNA PCR, SERUM (03/15/2017 12:24 PM EDT) Hepatitis C virus Ab NON-REACTI VE NON-REACT ISHAN [facility] Hepatitis C virus Ab Signal/Cutoff 0.01 <1.00 [facility] 03/15/2017 12:2 4 PM EDT 03/15/2017 9:56 PM EDT Narrative Resulting Agency Comment [id number] Julissa Arroyo MD LABORATORY Final Resu lt [facility] [address] [place] [address] * DIGITAL SCREENING MAMMO (02/20/2017 10:29 AM EDT) [facility] RADIOLOGY REPORT DEPARTMENT OF RADIOLOGY ------ Patient: MOHINI TORRES Unit #: [id number] Ordering MD: JULISSA ARROYO MD : 1965 Procedure: Digital Mammo Screen Age: 51 Location: MAMMO Exam Date: 02/20/17 Status: [facility] Room/Bed: Primary MD: JULISSA ARROYO MD Patient Order: [id number] Additional Copy: JULISSA ARROYO MD #[id number] - DIGSCRMAM BILATERAL DIGITAL TOMOSYNTHESIS SCREENING MAMMOGRAM WITH CAD: 02/20/2017 CLINICAL: Routine. Digital 2D mammogram, synthesized 2D views and 3D Tomosynthesis views were obtained. Current study was also evaluated with a Computer Aided Detection (CAD) system. Comparison is made to exams dated: 08/18/2014 mammogram, 01/15/2012 mammogram, and 12/22/2010 mammogram - [facility]. There are scattered areas of fibroglandular density [...] is recommended. This exam was interpreted at [facility]. POI: Gurvinder. Electronically signed by: Kacie Gomez M.D. sv/:02/21/2017 11:12:30 letter sent: B-Needs Addl Imaging Mammogram BI-RADS: 0 INCOMPLETE:NEED ADDITIONAL IMAGING EVALUATION [facility] RAD Anatomical Region Laterality Modality Other 02/20/2017 10:2 9 AM EDT Narrative 02/20/2017 10:29 AM EDT Reason for Study/History: Routine. TEST(S) PROCESSED BY SANDY SELENA Julissa Arroyo MD IMAGING-SANDY Final R esult from Last 3 Months or Most Recently Relevant to Health Maintenance Insurance [facility] FEE FOR SERVICE PPO Advance Directives Documents on File Type Date Recorded Patient Supply Aide Expl anation Advance Directives and Living Will 01/01/2017 Care Teams Pasteurizer Helper Relationship Specialty Start Date End Date Julissa Arroyo MD [address] [place] [address] PCP - General Family Medicine 06/15/16
--- OUTSIDE RECORDS SUMMARY | 2025-11-16 14:40 | XMS_ITS | Encounter Summary ---
Author Organization [facility] Address [address] [place] [address] Care Team Providers Care Sales Driver Name Role Phone Julissa Arroyo MD Primary Care Provider +1- [phone] Reason for Referral * OUTPT PROCEDURES AND DIAGNOSTICS (Routine) - ZZ Not Required Specialty Diagnoses / Procedures Referred By Contac t Referred To Contact Mammography Diagnoses SCREENING Procedures REQUEST FOR MAMMOGRAPHY BILATERAL(DX: SCREENING FOR BREAST CANCER Z12.31)(1 YR FROM LAST) NON-FC Julissa Arroyo MD [address] [place] [address] Phone: tel: fax: [facility] [address] [place] [address] Phone: tel: Referral ID Status Reason Start Date Expiration Date Visits Requested Visits Authorized [id number] ZZ Not Required Continuity of Care 03/24/2017 1 1 Encounter Details Date Type Department Care Team (Late st Contact Info) Description 03/24/2017 Orders Only [facility] [address] [place] [address] Julissa Arroyo MD [address] [place] [address] Social History Tobacco Use Types Packs/Day Years [...] 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
--- OUTSIDE RECORDS SUMMARY | 2025-11-16 14:40 | XMS_ITS | Encounter Summary ---
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 * ASPARTATE AMINOTRANSFERASE (AST), SERUM (03/15/2017 12:24 PM EDT) AST (SGOT) 21 10 - 35 U/L [facility] 03/15/2017 12:2 4 PM EDT 03/15/2017 9:56 PM EDT Narrative Resulting Agency Comment [id number] Julissa Arroyo MD LAB SAME DAY RESULT Final Result [facility] [address] [place] [address] * ALANINE AMINOTRANSFERASE (ALT), SERUM (03/15/2017 12:24 PM EDT) ALT (SGPT) 28 6 - 29 U/L [facility] 03/15/2017 12:2 4 PM EDT 03/15/2017 9:56 PM EDT Narrative Resulting Agency Comment [id number] Julissa Arroyo MD LAB SAME DAY RESULT Final Result Performing Organization Address [facility] Co de Phone Number [facility] [address] [place] [address] * (ABNORMAL) HEPATITIS B SURFACE ANTIBODY, QUANTITATIVE (03/15/2017 12:24 PM EDT) Hepatitis B virus surface Ab 9(L) > OR = 10 mIU/mL [facility] Comment: Patient does not have immunity to hepatitis B virus. For additional information, please refer to http://education.[employer]/faq/JJO288 (This link is being provided for informational/ educational purposes only). 03/15/2017 12:2 4 PM EDT 03/15/2017 9:56 PM EDT Narrative Resulting Agency Comment [id number] us Julissa Arroyo MD LABORATORY Final Resu lt Performing Organization Address [facility] de Phone Number [facility] [address] [place] [address] * IRON PROFILE (IRON/TIBC), SERUM (03/15/2017 12:24 PM EDT) Iron 142 45 - 160 mcg/dL [facility] Iron binding capacity 316 250 - 450 mcg/dL (calc) [facility] Iron saturation 45 11 - 50 % (calc) [facility] 03/15/2017 12:2 4 PM EDT 03/15/2017 9:56 PM EDT Narrative Resulting Agency Comment [id number] Julissa Arroyo MD LABORATORY Final Resu lt Performing Organization Address [facility] Co de Phone Number [facility] [address] [place] [address] * HEPATITIS B SURFACE ANTIGEN (03/15/2017 12:24 PM EDT) Pathologist [facility] [place] Hepatitis B virus surface Ag NON-REACTI VE NON-REACT ISHAN [facility] 03/15/2017 12:2 4 PM EDT 03/15/2017 9:56 PM EDT Narrative Resulting Agency Comment [id number] Julissa Arroyo MD LABORATORY Final Resu lt Performing Organization Address [facility] Co de Phone Number [facility] [address] [place] [address] * HEPATITIS C AB WITH REFLEX TO RNA PCR, SERUM (03/15/2017 12:24 PM EDT) Pathologist [facility] [place] Hepatitis C virus Ab NON-REACTI VE NON-REACT ISHAN [facility] Hepatitis C virus Ab Signal/Cutoff 0.01 <1.00 [facility] 03/15/2017 12:2 4 PM EDT 03/15/2017 9:56 PM EDT Narrative Resulting Agency Comment [id number] Julissa Arroyo MD LABORATORY Final Resu lt Performing Organization Address [facility] Co de Phone Number [facility] [address] [place] [address] * (ABNORMAL) CBC INCLUDES DIFFERENTIAL AND PLATELET COUNT (03/15/2017 12:24 PM EDT) Pathologist [facility] [place] WBC 5.4 3.8 - 10.8 Thousand/u L [...] 9:56 PM EDT Narrative Resulting Agency Comment [id number] Julissa Arroyo MD LAB SAME DAY RESULT Final Result Performing Organization Address [facility] de Phone Number [facility] [address] [place] [address] * (ABNORMAL) LIPID PANEL WITH REFLEX TO [...] 9:56 PM EDT Narrative Resulting Agency Comment [id number] Julissa Arroyo MD LABORATORY Final Resu lt Performing Organization Address [facility] Co de Phone Number [facility] [address] [place] [address] documented in this encounter Visit Diagnoses Diagnosis Healthcare maintenance Routine general medical examination at a health care facility Pure hypercholesterolemia Abnormal liver function test Other abnormal blood chemistry Abnormal CBC Other abnormal blood chemistry documented in this encounter Care Teams Sign Maker Relationship Specialty Start Date End Date Julissa Arroyo MD [address] [place] [id number] PCP - General Family Medicine 06/15/16 documented as of this encounter
--- OUTSIDE RECORDS SUMMARY | 2025-11-16 14:40 | XMS_ITS | Encounter Summary ---
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 * Telephone Encounter - Julissa Arroyo MD - 05/17/2017 3:45 PM EDT okay * Telephone Encounter - Kami Walker - 05/17/2017 1:10 PM EDT [facility] website states xanax last filled 03/14 for #60. Pt has been getting the alprazolam from a provider in [place], but last month it came from this office. Rx attached if ok. * Telephone Encounter - Lizet Mehta - 05/17/2017 10:26 AM EDT Received telephone call from patient requesting refills for the following medication(s): ALPRAZolam0.5 MG Tab. Provider of this patient is . Pharmacy is [facility]. documented in this encounter Plan of Treatment Not on file documented as of this encounter Goals Goal Patient Goal Type Associated Problems Recent Progress Patient-Stated? Author Quit smoking / using tobacco Lifestyle No Lidya Coleman, RN documented as of this encounter Visit Diagnoses Not on filedocumented in this encounter Care Teams Amusement Park Worker Relationship Specialty Start Date End Date Julissa Arroyo MD [address] [place] [id number] PCP - General Family Medicine 06/15/16 documented as of this encounter
--- OUTSIDE RECORDS SUMMARY | 2025-11-16 14:40 | XMS_ITS | Encounter Summary ---
Author Organization [facility] Address [address] [place] [address] Care Team Providers Care Boat Hoist Operator Helper Name Role Phone Julissa Arroyo MD Primary Care Provider +1- [phone] Encounter Details Date Type Department Care Team (Late st Contact Info) Description 07/30/2017 Orders Only [facility] [address] [place] [address] Julissa Arroyo MD [address] [place] [address] Social History Tobacco Use Types Packs/Day Years [...] Date Job End Date [facility] 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 * (ABNORMAL) VITAMIN D, 25-HYDROXY, TOTAL, IMMUNOASSAY (07/30/2017 11:35 AM EDT) Vitamin D, 25-OH, Total 24(L) 30 - 100 ng/mL [employer] Comment: Vitamin D Status 25-OH Vitamin D: Deficiency: <20 ng/mL Insufficiency: 20 - 29 ng/mL Optimal: > or = 30 ng/mL For 25-OH Vitamin D testing on patients on D2-supplementation and patients for whom quantitation of D2 and D3 fractions is required, the QuestAssureD(TM) 25-OH VIT D, (D2,D3), LC/MS/MS is recommended: order code 37377 (patients >2yrs). For more information on this test, go to: http://education.[employer]/faq/IZG587 (This link is being provided for informational/educational purposes only.) 07/30/2017 11:3 5 AM EDT 07/30/2017 9:43 PM EDT Narrative Resulting Agency Comment [id number] Julissa Arroyo MD LABORATORY Final Resu lt [facility] [address] [place] [address] * (ABNORMAL) CBC INCLUDES DIFFERENTIAL AND PLATELET [...] 9:43 PM EDT Narrative Resulting Agency Comment [id number] Julissa Arroyo MD LAB SAME DAY RESULT Final Result Performing Organization Address City/[facility]/ZIP Co de Phone Number [facility] [address] [place] [address] * ASPARTATE AMINOTRANSFERASE (AST), SERUM (07/30/2017 11:35 AM EDT) AST (SGOT) 17 10 - 35 U/L [facility] 07/30/2017 11:3 5 AM EDT 07/30/2017 9:43 PM EDT Narrative Resulting Agency Comment [id number] Julissa Arroyo MD LAB SAME DAY RESULT Final Result Performing Organization Address [facility] de Phone Number [facility] [address] [place] [address] * (ABNORMAL) LIPID PANEL WITH REFLEX TO [...] From the Standard Lipid Profile. NICOLAS. 2013;310(19): 6657-7438. For additional information, please refer to http://education.[employer]/faq/FPT323 (This link is being provided for informational/ [...] 9:43 PM EDT Narrative Resulting Agency Comment [id number] Julissa Arroyo MD LABORATORY Final Resu lt [facility] [address] [place] [address] documented in this encounter Visit Diagnoses Diagnosis Pure hypercholesterolemia Well adult exam Routine general medical examination at a health care facility Vitamin D deficiency documented in this encounter Care Teams Boat Hoist Operator Helper Relationship Specialty Start Date End Date Julissa Arroyo MD [address] [place] [id number] PCP - General Family Medicine 06/15/16 documented as of this encounter
== END 2025-11-16 13:32 | disposition home or self-care (01) ==
LOC: HO.MAMMO 13:31
PROVIDERS: PCP Physician Assistant; Visit Provider Physician Assistant
DX: M85.89 Other specified disorders of bone density and structure, multiple sites (principal)
CPT/HCPCS: 77063; 77067; 77080

== ENCOUNTER → 2025-11-16 14:30 | Outpatient (BNV) | payer OTHER, SELFPAY | PROVIDERS: PCP Physician Assistant; Visit Provider Radiology Diagnostic Radiology | DX: E28.39 Other primary ovarian failure (principal) | CPT/HCPCS: 77080 ==